=== PATIENT | female | born 1995 | race Caucasian/White ===

== ENCOUNTER → 2018-01-10 | Outpatient (CLI) | payer OTHER ==
--- NOTE | 2018-01-11 09:46 | EEG PRO FEE REPORT ---
EEG INTERPRETATION PATIENT NAME: ANNELIESE ACOSTA ROOM#: ORDER#: [id number] DATE OF STUDY: 01/10/2018 : 1995 REFERRING MD: GUERDA SANDERS M.D. History This is a 22 year old woman with a history of seizures for the past fourteen years. Her last seizure was April 2017. Medications Keppra, Lamictal EEG Interpretation This EEG was recorded in the awake and drowsy states. The awake EEG is characterized by a moderately organized background with excessive theta slowing. There is a poorly developed posterior dominant rhythm of 10 Hz. Drowsiness is characterized by slowing of the background rhythms. There were moderately frequent multifocal spikes as well as occasional fragmentary generalized spike-wave discharges. During photic stimulation of 17 Hz, there was a brief generalized polyspike and wave discharge. During photic stimulation of 15 Hz, there was a generalized polyspike and wave discharge (onset bi-frontal) lasting approximately 14 seconds without a visible clinical correlation. This began with a frequency of 4 Hz slowing down thereafter. This is consistent with an electrographic seizure pattern. Hyperventilation resulted in slowing of the background rhythms with infrequent multifocal spikes and spike-wave bursts. EEG Classification 1. Electrographic seizure pattern during photic stimulation. 2. Generalized spike and polyspike wave discharges, occasional. 3. Multifocal spikes, moderately frequent. 4. Theta slowing of the background. EEG Impression This is an abnormal EEG. 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 There is one electrographic seizure pattern during photic stimulation. There are occasional bursts of generalized spike and polyspike and wave activity as well as moderately frequent multifocal spikes. The background showed excessive theta slowing. Clinical correlation is recommended. INTERPRETING PHYSICIAN: CICI JERRY M.D. /: HENRY TT: [id number] ID: [id number] /: [id number] TD: [id number] JOB: [id number] cc:Saud GOFF M.D. > MTDD
== END ==
LOC: NEURO 12:39
PROVIDERS: ATTEND Pediatrics
DX: G40.909 Epilepsy, unspecified, not intractable, without status epilepticus (principal)
CPT/HCPCS: 95819

== ENCOUNTER → 2019-09-13 | Outpatient (CLI) | payer OTHER ==
--- NOTE | 2019-09-13 21:45 | NEURO WORKBENCH EEG REPORT ---
EEG Report Patient: Sofi Botello ID: Referring Doctor: Aj Jones MD DOS: 09/13/2019 Medications: Levetiracetam, Lamictal History This is a 24 year old right handed woman with a history of epilepsy since age 8. Her last seizure was two years ago. This EEG was requested for seizures. EEG Interpretation This EEG was recorded in the awake, drowsy, and sleep states. The awake EEG is characterized by a well-organized background with brief slow alpha variant but no definitive posterior dominant rhythm was noted. There was lambda noted. Wicket waves were present. Drowsiness is characterized by slowing of the background rhythms. Vertex waves and sleep spindles were seen in the midline head regions. Photic stimulation resulted in an excellent driving response. Hyperventilation resulted in generalized background slowing. There were sharply contoured waveforms in the left central regions with sharp waves in the left and right temporal and right central regions. The EKG showed a regular rhythm. EEG Classification Sharp waves, multifocal EEG Impression This EEG is abnormal. The sharp waves suggest cortical irritability. INTERPRETING NEUROLOGIST: Digna Walters MD, FRCPC Board Certified in Neurology, with special qualification in Child Neurology, and in Clinical Neurophysiology [facility]
== END ==
LOC: NEURO 12:47
PROVIDERS: ATTEND Pediatrics
DX: G40.909 Epilepsy, unspecified, not intractable, without status epilepticus (principal); H53.9 Unspecified visual disturbance
CPT/HCPCS: 95819

== ENCOUNTER → 2020-04-22 | Outpatient (CLI) | payer OTHER ==
--- NOTE | 2020-04-23 13:47 | NEURO WORKBENCH EEG REPORT ---
EEG Report Patient: Sofi Botello ID: [id number] Referring Doctor: Aj Jones Date: 04/22/2020 Reason for study: Evaluate Epileptiform activity Medications: Levetiracetam ER, Lamotrigine ER History: This is a 25 year old female with a history of epilepsy diagnosed at age 8, and her last seizure was over 6 months ago. She also is experiencing and unspecified visual disturbance. This EEG was requested for evaluation of epileptiform activity. EEG Interpretation: This EEG was recorded during wakefulness and stage I sleep. The awake EEG does not have a well developed posterior dominant rhythm (PDR), and the background shows predominantly diffuse 7-8 Hz theta-alpha activity with superimposed low amplitude beta activity. The EEG is symmetric in amplitudes and frequencies, and organized. There was rare brief Mu rhythm noted in the bilateral central regions. Photic stimulation resulted in excellent photic driving. Hyperventilation resulted in the appearance of increased diffuse theta activity (normal for age). Stage I sleep was achieved and characterized by slow rolling eye movements, slowing of the background rhythm with more theta activity, vertex waves, and POSTs. Stage II sleep was not achieved. There were frequent independent bi-temporal sharp waves which appear epileptiform in etiology. There were frequent poorly formed sharply contoured waveforms as well in the bilateral central-parietal regions, but none of these appeared definitively epileptiform in etiology. During stage I sleep, there was one approximately 5 second period of high amplitude (approximately 350-400 uV), generalized poly-spike and wave activity at about 2.5 Hz which had an abrupt onset and termination. There were no seizures (note that the electrographic definition of a seizure requires at least 10 seconds in duration). The EKG showed an irregular rhythm with typically 60-75 beats per minute, but with occasional atypically prolonged pauses between beats. EEG Impression: This EEG is abnormal. There was frequent independent, bi-temporal epileptiform activity and an approximately 5 second duration of generalized poly-spike and wave activity during stage I sleep. These findings are consistent with a clinical diagnosis of epilepsy, and the generalized poly-spike and wave activity suggests a generalized epilepsy syndrome. It is also noted that the patient is taking both levetiracetam and lamotrigine, both of which may suppress interictal epileptiform activity. Consideration should be given to medication adjustments as clinically indicated. The EEG also showed mild generalized background slowing with more theta activity than expected for age, which is a non-specific finding suggesting possibly mild cognitive dysfunction. In addition, an irregular cardiac rhythm was noted, and further cardiac evaluation should be considered. INTERPRETING NEUROLOGIST: Andrea Can MD Board certified by the [place] [employer] in Neurology, Clinical Neurophysiology, and Sleep Medicine [facility]
== END ==
LOC: NEURO 12:29
PROVIDERS: ATTEND Pediatrics
DX: G40.909 Epilepsy, unspecified, not intractable, without status epilepticus (principal); H53.9 Unspecified visual disturbance
CPT/HCPCS: 95819

== ENCOUNTER → 2020-05-12 | Outpatient (CLI) | payer OTHER ==
--- NOTE | 2020-05-13 08:37 | EKG REPORT ---
SEVERITY:- BORDERLINE ECG - SINUS TACHYCARDIA BORDERLINE T ABNORMALITIES, ANT-LAT LEADS : Confirmed by: Olivia Nava MD 13-May-2020 08:36:42
== END ==
LOC: OD 16:03
PROVIDERS: ATTEND Pediatrics
DX: G40.909 Epilepsy, unspecified, not intractable, without status epilepticus (principal); H53.9 Unspecified visual disturbance
CPT/HCPCS: 93005; 93010